=== PATIENT | female | born 1930 | race Caucasian/White ===

== ENCOUNTER → 2016-02-16 | Outpatient (CLI) | payer MEDICARE ==
[2016-01-16 14:52] VITALS: BP 132/60
[~2016-02-16] MED LIST: AMLO5TAB2 PO; ANTI; ATOR20TA PO; CIPR250T30 PO; CLON1TAB3 PO; LOSA50TA6 PO; METO25TA4 PO; OMEP20CA9 PO; POLY17PO5 PO; TRIA15OI TP; [UNRECOGNIZED DRUG - OTHER]; [UNRECOGNIZED DRUG - REMARK] PO
--- NOTE | 2016-02-16 12:59 | RAD ---
Indication kidney stone. 2 supine films of the abdomen were obtained. Note is made of an examination one month earlier. Note is additionally made of a CT examination of the abdomen and pelvis 01/14/2016. The lung bases are clear. The abdominal gas pattern is unremarkable. No definite renal or ureteral calculi are seen. There are some degenerative changes in the lumbar spine. IMPRESSION: No acute or significant finding seen on KUB
== END | disposition home or self-care (01) ==
LOC: RAD 10:41
PROVIDERS: ATTEND Urology
DX: N20.1 Calculus of ureter (principal)
CPT/HCPCS: 74000

== ENCOUNTER 2020-12-14 15:22 | Emergency (ER) | payer MEDICARE ==
[~2020-12-14] VITALS: Ht 170.2 cm; Wt 64.5 kg
[~2020-12-14 15:22] MED LIST changes: +AMLO-186 PO; +AMLO10TA4 PO; -AMLO5TAB2 PO; -CLON1TAB3 PO; +CLONAZEPAM1 MG PO; +LOSA-73 PO; -LOSA50TA6 PO; +MECL12.582 PO; +OMEP20CA16 PO; -OMEP20CA9 PO; +POLY17PO29 PO; -POLY17PO5 PO
--- NOTE | 2020-12-14 15:25 | PHYS DOC ---
Past Medical History Past Medical History: High Cholesterol, Hypertension Past Surgical History: Appendectomy, Hysterectomy Smoking Status: Never Smoker Alcohol Use: Heavy Drug Use: None General Adult HPI: HPI: Patient is a 89 year old female brought in by ambulance from home for generalized abdominal pain, which has been present for days. The pain subsided somewhat a couple of days ago but then returned last night and has progressively worsened throughout the day today. The pain is intermittent. She reports that she has noticed significant abdominal bloating, which is unusual for her. She denies constipation or diarrhea symptoms. She does report a few episodes of nausea and vomiting. She has no active pain at present. She localizes more of her pain towards the right lower abdomen. She denies urinary symptoms. She denies back or flank pain. She denies fever or chills. She denies chest pain or dyspnea. She denies dizziness or syncope. She has had a previous total hysterectomy and appendectomy, many years ago. She denies any prior history of bowel obstruction. Review of Systems: Review of Systems: Constitutional: Denies fever or chills. [] HENT: Denies nasal congestion or sore throat. [] Respiratory: Denies cough or shortness of breath. [] Cardiovascular: Denies chest pain or edema. [] GI: Reports abdominal pain, nausea vomiting. Denies constipation, diarrhea, melena or hematochezia. : Denies urinary symptoms. Musculoskeletal: Denies back pain or joint pain. [] Integument: Denies rash. [] Neurologic: Denies headache, focal weakness or sensory changes. [] Endocrine: Denies polyuria or polydipsia. [] Psychiatric: She does report having anxiety regarding her pain symptoms. [] Heart Score: C/O Chest Pain: No Risk Factors: Risk Factors: DM, Current or recent (<one month) smoker, HTN, HLP, family history of CAD, obesity. Risk Scores: Score 0 - 3: 2.5% MACE over next 6 weeks - Discharge Home Score 4 - 6: 20.3% MACE over next 6 weeks - Admit for Clinical Observation Score 7 - 10: 72.7% MACE over next 6 weeks - Early Invasive Strategies Allergies: Allergies: Allergies Coded Allergies Type Severity Reaction Last Updated Verified No Known Drug Allergies 01/13/16 No Physical Exam: PE: Constitutional: Well developed, well nourished, no acute distress, non-toxic appearance. [] HENT: Normocephalic, atraumatic, oropharynx patent and clear, mucous membranes moist Eyes: Clear are clear and anicteric. Neck: Normal range of motion, no tenderness, supple, no stridor. Trachea is midline. Cardiovascular:Heart rate regular rhythm, +2 radial and dorsalis pedis pulses bilaterally. Lungs & Thorax: Bilateral breath sounds clear to auscultation [] Abdomen: Abdomen soft, moderately distended, bowel sounds present but hypoactive, exquisite right lower quadrant tenderness to palpation with involuntary guarding. No rebound tenderness. Mild suprapubic tenderness to palpation. No palpable pulsatile mass. No audible bruit. No CVA tenderness. No palpable mass organomegaly. No flank or abdominal ecchymoses. Skin: Warm, dry, no erythema, no rash. No jaundice. Back: No tenderness, no CVA tenderness. [] Extremities: No tenderness, no cyanosis, no clubbing, ROM intact, no edema. [] Neurologic: Alert and oriented X 3, normal motor function, normal sensory function, no focal deficits noted. [] Psychologic: She is mildly anxious, though she is very cooperative and pleasant. [] EKG: EKG: [] Radiology/Procedures: Radiology/Procedures: IMAGING REPORT Signed PATIENT: JASON ERNST LACCOUNT: [id number] : 1930 LOCATION: ER AGE: 89 SEX: F EXAM STATUS: REG ER ORD. PHYSICIAN: NICHOLAS STOKES DO REASON: abdominal pain PROCEDURE: CT ABD PELV W/ IV CONTRST ONLY EXAMINATION: CT abdomen and pelvis with IV contrast. INDICATION:89 years, Female, abdominal pain. TECHNIQUE: Axial CT images of the abdomen and pelvis were obtained. Coronal and sagittal reformatted performed. COMPARISON: 01/14/2016. Exposure: One or more of the following individualized dose reduction techniques were utilized for this examination: 1. Automated exposure control 2. Adjustment of the mA and/or kV according to patient size 3. Use of iterative reconstruction technique. FINDINGS: LOWER CHEST: Subsegmental atelectasis in the lingula and right middle lobe. Small to moderate amount of pericardial effusion, new since prior exam. Borderline cardiomegaly. Coronary artery atherosclerotic calcifications. ABDOMEN/PELVIS: Enlarged left and caudate lobes with mild surface irregularity. No suspicious focal hepatic lesion. Redemonstrated 2.[address] evidence of acute cholecystitis. No biliary ductal dilation. Calcified granulomas in the spleen. Diffuse pancreatic atrophy. Multiple subcentimeter hypodense foci in the largest measures 0.8 cm. No main pancreatic ductal dilation. No adrenal nodule. No hydronephrosis or nephrolithiasis. There is a 3.0 cm simple cyst in the interpolar right kidney, increasing from 1.3 cm on prior exam. Subcentimeter hypodensity in the interpolar right kidney, too small to characterize. Nonspecific bilateral perinephric fat stranding. Similar uncomplicated duodenal diverticula. Extensive colonic diverticulosis. Mild wall thickening of the sigmoid colon with adjacent minimal fat stranding and trace amount of pelvic free fluid. No bowel obstruction. Moderate aortoiliac atherosclerotic calcifications. Mild to moderate luminal narrowing of the celiac trunk origin secondary to atherosclerotic calcifications. No lymphaden opathy in the abdomen or pelvis by size criteria. Unremarkable urinary bladder. Hysterectomy. MUSCULOSKELETAL STRUCTURES: Grade 1 anterolisthesis of L4-5. Minimal retrolisthesis of L2 over L3. Multilevel degenerative changes in the spine. No acute osseous process. IMPRESSION: 1. Extensive colonic diverticulosis with mild wall thickening of the sigmoid colon with adjacent minimal fat stranding and trace amount of pelvic free fluid. Findings are suspicious for mild acute diverticulitis. Clinical correlation is advised. 2. Small to moderate amount of pericardial effusion, new since prior exam. 3. Morphology of the liver suggesting of chronic disease. Clinical correlation is advised. 4. Similar cholelithiasis. 5. 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 No follow-up is required given patient's age. Electronically signed by: Henrik Roa MD (12/14/2020 5:27 PM) [facility] DICTATED and SIGNED BY: HENRIK ROA MD DATE: 12/14/20 [id number] Course & Med Decision Making: Course & Med Decision Making Pertinent Labs and Imaging studies reviewed. (See chart for details) IV fluid normal saline bolus given. She declined antiemetics or pain medication here. She is resting comfortably. She does have a nonsurgical abdomen. Findings of acute mild diverticulitis noted on CT. Laboratory exams are unremarkable except for mild leukocytosis. The patient is anxiously awaiting discharge. She feels comfortable with discharge home and outpatient treatment for diverticulitis. I discussed all of the findings, differential diagnosis and plan of care with her. I explained that she should follow-up with her primary care physician. She has an appointment on December 24. I told her she might need to follow-up with outpatient GI services for endoscopy as well. She should discuss this with her PCP as well. The patient now is demanding a refill of Ambien. She has chronic insomnia, and she has been out of Ambien for some time. She reports that her PCP would not refill this for her because she does not want her to be on it, though she is going to discuss this again at her scheduled appointment on December 24. I explained kindly but firmly that this is not an appropriate refill from the emergency department, and I do not agree with ref illing Ambien in general, as it is a high risk drug for serious adverse effects. She is quite upset at the notion that I will not prescribe this for her, but I kindly reiterated to her that this will not be done through the emergency department. I kindly recommend that she might take [id number] melatonin or Unisom for insomnia symptoms, and she reports that she will not do this because she does not feel that they work. I explained this to her daughter as well, her daughter understands my rationale and is also comfortable with me not prescribing Ambien for her mother. Strict return precautions are given. Home care instructions are given. She verbalizes understanding of instructions and is comfortable with the plan of care Vincent Disclaimer: Vincent Disclaimer: This electronic medical record was generated, in whole or in part, using a voice recognition dictation system. Departure Departure Impression: Primary Impression: Acute diverticulitis Disposition: HOME / SELF CARE / HOMELESS Condition: STABLE Referrals: MARY REEDER MD (PCP) Patient Instructions: Diverticulitis Additional Instructions: Please take the full course of antibiotics. Use the pain medicine and nausea medicine as needed. Return immediately to the ER for fever 100.4 or higher, severe or uncontrolled pain, uncontrolled vomiting, dehydration, weakness or any other concerns. Regarding your insomnia, please follow-up with your primary care physician regarding any medications for this, if warranted, at your scheduled appointment on December 24. Make sure you eat a bland diet, drink plenty of clear fluids. In the meantime avoid foods with nuts or seeds or foods that are more difficult to digest, as this may potentially worsen or irritate your diverticulitis. You may ultimately need to follow-up with GI for colonoscopy, so discuss this with your doctor at your scheduled appointment this month. Scripts Hydrocodone Bit/Acetaminophen (HYDROCODONE-APAP 5-325 ) 1 Tab Tablet 1 TAB PO PRN Q6HRS PRN for PAIN, #20 TAB 0 Refills Prov: NICHOLAS STOKES DO 12/14/20 Ondansetron Hcl (ZOFRAN) 4 Mg Tablet 4 MG PO PRN TID PRN for VOMITING, #20 TAB 0 Refills nausea/vomiting Prov: NICHOLAS STOKES DO 12/14/20 Amoxicillin/Potassium Clav (AUGMENTIN 875-125 TABLET) 1 Each Tablet 1 TAB PO BID for 10 Days, #20 TAB 0 Refills Prov: NICHOLAS STOKES DO 12/14/20 NICHOLAS STOKES DO Dec 14, 2020 15:25
[2020-12-14] MEDS ORDERED: IV NORMAL SALINE 1000ML BAG 1,000 ML IV ONE (15:45)
[2020-12-14 16:27] LABS: BASO # 0.1 x10^3/uL (0.0-0.2); BASO % 1 % (0-3); EOS # 0.1 x10^3/uL (0.0-0.7); EOS % 1 % (0-3); HEMOGLOBIN 11.5 g/dL (12.0-15.5); LYMPH # 1.9 x10^3/uL (1.0-4.8); LYMPH % 15 % (24-48); MEAN CORPUSCULAR HEMOGLOBIN 28 pg (25-35); MEAN CORPUSCULAR HGB CONC 33 g/dL (31-37); MEAN CORPUSCULAR VOLUME 86 fL (79-100); MONO # 0.8 x10^3/uL (0.0-1.1); MONO % 7 % (0-9); NEUT # 9.4 x10^3/uL (1.8-7.7); NEUT % 77 % (31-73); PLATELET COUNT 380 x10^3/uL (140-400); RED BLOOD COUNT 4.09 x10^6/uL (3.50-5.40); WHITE BLOOD COUNT 12.3 x10^3/uL (4.0-11.0)
[2020-12-14 16:38] LABS: CREATININE 1.3 mg/dL (0.6-1.0); GFR 38.6; POTASSIUM 4.2 mmol/L (3.5-5.1)
[2020-12-14 16:45] LABS: MAGNESIUM 2.1 mg/dL (1.8-2.4); TOTAL BILIRUBIN 0.9 mg/dL (0.2-1.0); TOTAL PROTEIN 8.1 g/dL (6.4-8.2)
[2020-12-14 16:46] LABS: BILIRUBIN,URINE NEGATIVE (NEG); CLARITY,URINE CLEAR; COLOR,URINE YELLOW; NITRITE,URINE NEGATIVE (NEG); PROTEIN,URINE 100 mg/dL (NEG-TRACE); UROBILINOGEN,URINE 0.2 mg/dL (0.2 mg/dL)
[2020-12-14] MEDS ORDERED: IOHEXOL 300 MG/ML 100ML VIAL. IV ONE (17:00)
[2020-12-14 17:08] LABS: BACTERIA,URINE FEW /HPF (0-FEW)
[2020-12-14 17:10] LABS: RBC,URINE 0 /HPF (0-2)
[2020-12-14 17:11] LABS: YEAST,URINE PRESENT /HPF
--- NOTE | 2020-12-14 17:29 | RAD ---
EXAMINATION: CT abdomen and pelvis with IV contrast. INDICATION:89 years, Female, abdominal pain. TECHNIQUE: Axial CT images of the abdomen and pelvis were obtained. Coronal and sagittal reformatted performed. COMPARISON: 01/14/2016. Exposure: One or more of the following individualized dose reduction techniques were utilized for thi s examination: 1. Automated exposure control 2. Adjustment of the mA and/or kV according to patient size 3. Use of iterative reconstruction technique. FINDINGS: LOWER CHEST: Subsegmental atelectasis in the lingula and right middle lobe. Small to moderate amount of pericardia l effusion, new since prior exam. Borderline cardiomegaly. Coronary artery atherosclerotic calcificat ions. ABDOMEN/PELVIS: Enlarged left and caudate lobes with mild surface irregularity. No suspicious focal hepatic lesion. R edemonstrated 2.[address] evidence of acute cholecystitis. No biliary ductal dilatio n. Calcified granulomas in the spleen. Diffuse pancreatic atrophy. Multiple subcentimeter hypodense f oci in the largest measures 0.8 cm. No main pancreatic ductal dilation. No adrenal nodule. No hydrone phrosis or nephrolithiasis. There is a 3.0 cm simple cyst in the interpolar right kidney, increasing from 1.3 cm on prior exam. Subcentimeter hypodensity in the interpolar right kidney, too small to john racterize. Nonspecific bilateral perinephric fat stranding. Similar uncomplicated duodenal diverticula. Extensive colonic diverticulosis. Mild wall thickening of the sigmoid colon with adjacent minimal fat stranding and trace amount of pelvic free fluid. No fam l obstruction. Moderate aortoiliac atherosclerotic calcifications. Mild to moderate luminal narrowing of the celiac trunk origin secondary to atherosclerotic calcifications. No lymphadenopathy in the ab domen or pelvis by size criteria. Unremarkable urinary bladder. Hysterectomy. MUSCULOSKELETAL STRUCTURES: Grade 1 anterolisthesis of L4-5. Minimal retrolisthesis of L2 over L3. Multilevel degenerative change s in the spine. No acute osseous process. IMPRESSION: 1. Extensive colonic diverticulosis with mild wall thickening of the sigmoid colon with adjacent min imal fat stranding and trace amount of pelvic free fluid. Findings are suspicious for mild acute dive rticulitis. Clinical correlation is advised. 2. Small to moderate amount of pericardial effusion, new since prior exam. 3. Morphology of the liver suggesting of chronic disease. Clinical correlation is advised. 4. Similar cholelithiasis. 5. Multiple subcentimeter hypodense foci in the pancreas, likely cysts or side branch intraductal pa pillary mucinous neoplasms. No follow-up is required given patient's age. Electronically signed by: Bill Roa MD (12/14/2020 5:27 PM) [facility]
[2020-12-14] MEDS ORDERED: AMOX1TAB61 PO (18:18)
[2020-12-14] MEDS ORDERED: ONDA4TAB7 PO (18:18)
[2020-12-14] MEDS ORDERED: HYDR-2761 PO (18:18)
[2020-12-14 18:39] VITALS: BP 167/73
[2020-12-14] MEDS ORDERED: AMOXICILLIN/K CLAV 875/125MG TABLET. PO ONE (18:45)
[2020-12-18] MEDS ORDERED: ZOLP5TAB PO (09:41)
[2020-12-18] MEDS ORDERED: CIPR250T30 PO (09:41)
== END 2020-12-14 19:10 | disposition home or self-care (01) ==
LOC: ER 15:22
DX: K57.92 Diverticulitis of intestine, part unspecified, without perforation or abscess without bleeding (principal); E78.00 Pure hypercholesterolemia, unspecified; I10 Essential (primary) hypertension; Z90.89 Acquired absence of other organs; Z90.710 Acquired absence of both cervix and uterus
CPT/HCPCS: 99285; J7030; Q9967; 36415; 74177; 80053; 81001; 83605; 83690; 83735; 85025; 96360

== ENCOUNTER 2020-12-16 08:28 | Inpatient (IN) | payer MEDICARE ==
[~2020-12-16] VITALS: Ht 170.2 cm; Wt 64.5 kg
[~2020-12-16 08:28] MED LIST changes: +AMOX1TAB61 PO; +HYDR-2761 PO; +ONDA4TAB7 PO
[2020-12-16] MEDS ORDERED: IV NORMAL SALINE 1000ML BAG 1,000 ML IV ONE (09:45)
[2020-12-16] MEDS ORDERED: METOCLOPRAMIDE HCL 10 MG/2 ML VIAL. IVP ONE (09:45)
[2020-12-16 09:47] LABS: BASO # 0.1 x10^3/uL (0.0-0.2); BASO % 1 % (0-3); EOS # 0.1 x10^3/uL (0.0-0.7); EOS % 1 % (0-3); HEMATOCRIT 35.5 % (36.0-47.0); HEMOGLOBIN 11.8 g/dL (12.0-15.5); LYMPH # 1.3 x10^3/uL (1.0-4.8); LYMPH % 14 % (24-48); MEAN CORPUSCULAR HEMOGLOBIN 29 pg (25-35); MEAN CORPUSCULAR HGB CONC 33 g/dL (31-37); MEAN CORPUSCULAR VOLUME 85 fL (79-100); MONO # 0.7 x10^3/uL (0.0-1.1); MONO % 8 % (0-9); NEUT # 7.2 x10^3/uL (1.8-7.7); NEUT % 77 % (31-73); PLATELET COUNT 385 x10^3/uL (140-400); RED BLOOD COUNT 4.16 x10^6/uL (3.50-5.40); RED CELL DISTRIBUTION WIDTH 17.1 % (11.5-14.5); WHITE BLOOD COUNT 9.3 x10^3/uL (4.0-11.0)
[2020-12-16] MEDS ORDERED: cefTRIAXone IV Push 1 GM VIAL. IVP ONE (10:00)
--- NOTE | 2020-12-16 10:01 | PHYS DOC ---
Past Medical History Past Medical History: High Cholesterol, Hypertension Past Surgical History: Appendectomy, Hysterectomy Smoking Status: Never Smoker Alcohol Use: None Drug Use: None General Adult EDM: Chief Complaint: NAUSEA/VOMITING HPI: HPI: 89-year-old female with recent diagnosis of diverticulitis on previous ED encounter 2 days ago presents to the emergency department complaining of abdominal soreness, nausea and vomiting over the last several days. She reports that she has been started on Augmentin at home, she has been able to stomach the pills secondary to her nausea and vomiting and states that she feels worse now. She denies any recent stool changes, blood in her urine, vomit or stool. She is concerned that she is not getting the antibiotics because of the vomiting. She was given Zofran and has taken 2 pills of the Zofran but states that this is not helped her symptoms. The patient admits to nausea, vomiting, chills, denies fever, chest pain, shortness of breath, urinary symptoms, cough, recent trauma, or any other complaints. Review of Systems: Review of Systems: Constitutional: Negative except what was mentioned in HPI. Eyes: Negative except what was mentioned in HPI. HENT: Negative except what was mentioned in HPI. Respiratory: Negative except what was mentioned in HPI. Cardiovascular: Negative except what was mentioned in HPI. GI: Negative except what was mentioned in HPI. : Negative except what was mentioned in HPI. Musculoskeletal: Negative except what was mentioned in HPI. Integument: Negative except what was mentioned in HPI. Neurologic: Negative except what was mentioned in HPI. Heart Score: C/O Chest Pain: No Current Medications: Current Medications Medications (Trade) Dose Ordered Sig/Rahul Start Time Stop Time Status Last Admin Dose Admin Metoclopramide HCl (Reglan Vial) 10 mg 1X ONCE 12/16/20 09:45 12/16/20 09:46 DC Sodium Chloride 1,000 ml @ 1,000 mls/hr 1X ONCE 12/16/20 09:45 12/16/20 10:44 Allergies: Allergies: Allergies Coded Allergies Type Severity Reaction Last Updated Verified No Known Drug Allergies 01/13/16 No Physical Exam: PE: Constitutional: No acute distress, non-toxic appearance. HENT: Atraumatic, bilateral external ears normal, nose normal. Eyes: PERRLA, EOMI, conjunctiva normal, no discharge. Neck: Normal range of motion, supple, no stridor. Cardiovascular: Heart rate regular rhythm. 2+ radial pulses Lungs & Thorax: No respiratory distress, symmetrical expansion. Bilateral breath sounds clear to auscultation Abdomen: Soft, lower quadrant mild tenderness appreciated Skin: Warm, dry. Extremities: No tenderness, no cyanosis, ROM intact, no edema. Neurologic: Alert and oriented X 3, normal motor function, normal sensory function, no focal deficits noted. GCS 15. Psychologic: Affect normal, judgment normal, mood normal. Current Patient Data: Labs: Laboratory Tests Test 12/16/20 09:00 12/16/20 10:25 White Blood Count 9.3 x10^3/uL (4.0-11.0) Red Blood Count 4.16 x10^6/uL (3.50-5.40) Hemoglobin 11.8 g/dL (12.0-15.5) Hematocrit 35.5 % (36.0-47.0) Mean Corpuscular Volume 85 fL (79-100) Mean Corpuscular Hemoglobin 29 pg (25-35) Mean Corpuscular Hemoglobin Concent 33 g/dL (31-37) Red Cell Distribution Width 17.1 % (11.5-14.5) Platelet Count 385 x10^3/uL (140-400) Neutrophils (%) (Auto) 77 % (31-73) Lymphocytes (%) (Auto) 14 % (24-48) Monocytes (%) (Auto) 8 % (0-9) Eosinophils (%) (Auto) 1 % (0-3) Basophils (%) (Auto) 1 % (0-3) Neutrophils # (Auto) 7.2 x10^3/uL (1.8-7.7) Lymphocytes # (Auto) 1.3 x10^3/uL (1.0-4.8) Monocytes # (Auto) 0.7 x10^3/uL (0.0-1.1) Eosinophils # (Auto) 0.1 x10^3/uL (0.0-0.7) Basophils # (Auto) 0.1 x10^3/uL (0.0-0.2) Sodium Level 139 mmol/L (136-145) Potassium Level 3.7 mmol/L (3.5-5.1) Chloride Level 102 mmol/L (98-107) Carbon Dioxide Level 24 mmol/L (21-32) Anion Gap 13 (6-14) Blood Urea Nitrogen 13 mg/dL (7-20) Creatinine 1.3 mg/dL (0.6-1.0) Estimated GFR (Cockcroft-Gault) 38.6 BUN/Creatinine Ratio 10 (6-20) Glucose Level 90 mg/dL (70-99) Calcium Level 8.8 mg/dL (8.5-10.1) Total Bilirubin 0.7 mg/dL (0.2-1.0) Aspartate Amino Transf (AST/SGOT) 20 U/L (15-37) Alanine Aminotransferase (ALT/SGPT) 18 U/L (14-59) Alkaline Phosphatase 101 U/L (46-116) Total Protein 8.1 g/dL (6.4-8.2) Albumin 3.8 g/dL (3.4-5.0) Albumin/Globulin Ratio 0.9 (1.0-1.7) Lipase 93 U/L (73-393) SARS-CoV-2 RNA (PASCALE) Negative (Negative) SARS-CoV-2 Antigen (Rapid) Negative (NEGATIVE) Vital Signs: Vital Signs Date Time Temp Pulse Resp B/P (MAP) Pulse Ox O2 Delivery O2 Flow Rate FiO2 12/16/20 08:30 97.6 86 20 187/86 (119) 99 Room Air 97.6 EKG: EKG: Left bundle branch pattern rate of 74, no ischemic changes. Course & Med Decision Making: Course & Med Decision Making We will plan to admit for failed outpatient management of acute diverticulitis that was diagnosed on Sunday, patient was unable to tolerate antibiotics with out vomiting at home and antiemetics did not help. Patient will be admitted to the hospitalist service under Dr. Quijano. Departure Departure Impression: Primary Impression: Acute diverticulitis Additional Impression: Nausea and vomiting Disposition: ADMITTED INPATIENT Admitting Physician: GÓMEZ Winters) Condition: STABLE Referrals: BAKARI OLMOS NP (PCP) MALIK AREVALO DO Dec 16, 2020 10:01
[2020-12-16 10:07] LABS: CALCIUM 8.8 mg/dL (8.5-10.1); CREATININE 1.3 mg/dL (0.6-1.0); GFR 38.6; POTASSIUM 3.7 mmol/L (3.5-5.1)
[2020-12-16 10:13] LABS: ALBUMIN 3.8 g/dL (3.4-5.0); ALBUMIN/GLOBULIN RATIO 0.9 (1.0-1.7); TOTAL BILIRUBIN 0.7 mg/dL (0.2-1.0); TOTAL PROTEIN 8.1 g/dL (6.4-8.2)
[2020-12-16] MEDS ORDERED: ONDANSETRON PF 4 MG/2 ML VIAL. IVP PRN (10:45)
[2020-12-16] MEDS ORDERED: ACETAMINOPHEN 325 MG TABLET. PO PRN ×2 (10:45→11:00)
[2020-12-16] MEDS ORDERED: MORPHINE SULFATE 4 MG/ML INJ. IVP PRN (10:45)
[2020-12-16] MEDS ORDERED: ZOLPIDEM 5 MG TABLET. PO PRN (11:00)
[2020-12-16] MEDS ORDERED: MORPHINE SULFATE 2 MG/ML INJ. IV PRN ×2 (11:00)
[2020-12-16] MEDS ORDERED: CALCIUM CARBONATE 500 MG TAB.CHEW PO PRN (11:00)
[2020-12-16] MEDS ORDERED: oxyCODONE IR 5 MG TABLET PO PRN (11:00)
[2020-12-16] MEDS ORDERED: PIP/TAZO PER PHARMACY MC PRN ×2 (11:00→11:30)
[2020-12-16] MEDS ORDERED: PIPERACILLIN/TAZOBACTAM 2.25 GM in IV NORMAL SALINE 50ML 50 ML IV ONE (11:00)
[2020-12-16] MEDS ORDERED: PROCHLORPERAZINE 10 MG/2 ML VIAL. IVP PRN (11:00)
[2020-12-16] MEDS ORDERED: ELECTROLYTE (NON-ICU) PROTOCOL. MC PRN (11:00)
[2020-12-16 12:00] VITALS: BP 158/62
--- NOTE | 2020-12-16 12:09 | PDOC1 ---
History and Physical Date of Service: DOS: DATE: 12/16/20 TIME: 12:08 Chief Complaint: Problems: (1) Acute diverticulitis (2) Nausea and vomiting Chief Complain: N/V History of Present Illness: HPI: Patient is an 89-year-old female with recent diagnosis of diverticulitis on previous ED encounter 2 days ago presents to the emergency department complaining of abdominal soreness, nausea and vomiting since sunday. She reports that she has been started on Augmentin at home, she has been able to stomach the pills secondary to her nausea and vomiting and states that she feels worse now. She denies any recent stool changes, blood in her urine, vomit or stool. She is concerned that she is not getting the antibiotics because of the vomiting. She was given Zofran and has taken 2 pills of the Zofran but states that this is not helped her symptoms. The patient admits to nausea, vomiting, chills. denies fever, chest pain, shortness of breath, urinary symptoms, cough, recent trauma, or any other complaints. No evaluate the patient she is resting in bed doing well. Confirmed history. Very pleasant. Past Medical/Surgical History: PMH/PSH: HTN, HPLD Allergies: Allergies: Coded Allergies: No Known Drug Allergies (Unverified , 01/13/16) Family History: Family History: HTN Social History: Social History: Denies alcohol, tobacco, drug use Current Medications: Current Medications Current Medications Metoclopramide HCl (Reglan Vial) 10 mg 1X ONCE IVP Last administered on 12/16/20at 10:14; Start 12/16/20 at 09:45; Stop 12/16/20 at 09:46; Status DC Sodium Chloride 1,000 ml @ 1,000 mls/hr 1X ONCE IV Last administered on 12/16/20at 10:14; Start 12/16/20 at 09:45; Stop 12/16/20 at 10:44; Status DC Metronidazole 100 ml @ 100 mls/hr 1X ONCE IV Last administered on 12/16/20at 10:14; Start 12/16/20 at 10:00; Stop 12/16/20 at 10:59; Status DC Ceftriaxone Sodium (Rocephin) 1 gm 1X ONCE IVP Last administered on 12/16/20at 10:14; Start 12/16/20 at 10:00; Stop 12/16/20 at 10:06; Status DC Ondansetron HCl (Zofran) 4 mg PRN Q8HRS PRN IVP NAUSEA/VOMITING; Start 12/16/20 at 10:45; Stop 12/17/20 at 10:44 Morphine Sulfate (Morphine Sulfate) 4 mg PRN Q2HR PRN IVP PAIN; Start 12/16/20 at 10:45; Stop 12/17/20 at 10:44 Acetaminophen (Tylenol) 650 mg PRN Q4HRS PRN PO FEVER > 100.3'F; Start 12/16/20 at 10:45; Stop 12/17/20 at 10:44 Piperacillin Sod/ Tazobactam Sod (Zosyn Per Pharmacy) 1 each PRN DAILY PRN MC SEE COMMENTS; Start 12/16/20 at 11:00; Stop 12/16/20 at 11:32; Status DC Ondansetron HCl (Zofran) 4 mg PRN Q6HRS PRN IVP NAUSEA/VOMITING; Start 12/16/20 at 11:00 Prochlorperazine Edisylate (Compazine) 10 mg PRN Q6HRS PRN IVP NAUSEA/VOMITING; Start 12/16/20 at 11:00 Calcium Carbonate/ Glycine (Tums) 500 mg PRN Q3HRS PRN PO UPSET STOMACH; Start 12/16/20 at 11:00 Zolpidem Tartrate (Ambien) 5 mg PRN QHS PRN PO INSOMNIA, MAY REPEAT IN 1HR; Start 12/16/20 at 11:00 Info (Non-Icu Electrolyte Protocol) 1 ea PRN DAILY PRN MC SEE COMMENTS; Start 12/16/20 at 11:00 Oxycodone HCl (Roxicodone) 5 mg PRN Q3HRS PRN PO BREAKTHROUGH PAIN; Start 12/16/20 at 11:00 Morphine Sulfate (Morphine Sulfate) 1 mg PRN Q1HR PRN IV PAIN; Start 12/16/20 at 11:00 Morphine Sulfate (Morphine Sulfate) 2 mg PRN Q1HR PRN IV PAIN-SEE COMMENTS; Start 12/16/20 at 11:00 Acetaminophen (Tylenol) 650 mg PRN Q6HRS PRN PO Headaches, Temp > 101.5F; Start 12/16/20 at 11:00 Senna/Docusate Sodium (Senna Plus) 1 tab BID PO ; Start 12/16/20 at 21:00 Heparin Sodium (Porcine) (Heparin Sodium) 5,000 unit Q8HRS SQ ; Start 12/16/20 at 12:00 Amlodipine Besylate (Norvasc) 10 mg DAILY PO ; Start 12/16/20 at 12:00 Atorvastatin Calcium (Lipitor) 20 mg QHS PO ; Start 12/16/20 at 21:00 Losartan Potassium (Cozaar) 50 mg DAILY PO ; Start 12/16/20 at 12:00 Metoprolol Tartrate (Lopressor) 25 mg BID PO ; Start 12/16/20 at 12:00 Piperacillin Sod/ Tazobactam Sod 2.25 gm/Sodium Chloride 50 ml @ 100 mls/hr 1X ONCE IV Last administered on 12/16/20at 11:24; Start 12/16/20 at 11:00; Stop 12/16/20 at 11:29; Status DC Piperacillin Sod/ Tazobactam Sod (Zosyn Per Pharmacy) 1 each PRN DAILY PRN MC SEE COMMENTS; Start 12/16/20 at 11:30 Piperacillin Sod/ Tazobactam Sod 2.25 gm/Sodium Chloride 50 ml @ 100 mls/hr Q6HRS IV ; Start 12/17/20 at 18:00 Active Scripts Active Hydrocodone-Apap 5-325 (Hydrocodone Bit/Acetaminophen) 1 Tab Tablet 1 Tab PO PRN Q6HRS PRN Zofran (Ondansetron Hcl) 4 Mg Tablet 4 Mg PO PRN TID PRN nausea/vomiting Augmentin 875-125 Tablet (Amoxicillin/Potassium Clav) 1 Each Tablet 1 Tab PO BID 10 Days Norvasc (Amlodipine Besylate) 10 Mg Tablet 10 Mg PO DAILY Meclizine Hcl 12.5 Mg Tablet 12.5 Mg PO PRN Q6HRS PRN Reported Metoprolol Tartrate 25 Mg Tablet 25 Mg PO BID Losartan Potassium 50 Mg Tablet 50 Mg PO DAILY Lipitor (Atorvastatin Calcium) 20 Mg Tablet 1 Tab PO DAILY ROS: Review of Systems Review of Systems Unless noted in HPI a 14 point review systems was negative Physical Exam: Vital Signs: Vital Signs Date Time Temp Pulse Resp B/P (MAP) Pulse Ox O2 Delivery O2 Flow Rate FiO2 12/16/20 10:48 68 19 171/70 (103) 98 Room Air 12/16/20 08:30 97.6 97.6 Physcial Exam: GEN: No apparent distress. Alert and oriented HEENT: Normal cephalic, atraumatic, external auditory canals are patent EYES: Extraocular muscles are intact, pupil are equally round and reactive to light and accommodation MUSCULOSKELETAL: Well developed , well nourished, good range of motion ENDOCRINE: No thyromegaly was palpated LYMPHATICS: No cervical chain or axillary nodes were noted HEMATOPOIETIC: No bruising NECK: Supple, no JVD, no thyromegaly was noted LUNGS: Clear to auscultation in all lung collins without rhonchi or wheezing HEART: RRR, S1, S2 present. Peripheral pulses intact, no obvious murmurs noted ABDOMEN: Diffusely tender, no distention normal bowel sounds EXTREMITIES: Without clubbing, cyanosis, or edema. Pedal pulses intact. NEUROLOGIC: Normal speech and tone. A&O x 3, moves all extremities, no obvious focal deficits PSYCHIATRIC: Normal affect, normal mood. Stable SKIN: No ulcerations or rashes, good skin turgor, no jaundice VASCULAR: Good capillary refill, neurovascular bundle appears to be intact Labs: Labs: Laboratory Tests Test 12/16/20 09:00 12/16/20 10:25 White Blood Count 9.3 x10^3/uL (4.0-11.0) Red Blood Count 4.16 x10^6/uL (3.50-5.40) Hemoglobin 11.8 g/dL (12.0-15.5) Hematocrit 35.5 % (36.0-47.0) Mean Corpuscular Volume 85 fL (79-100) Mean Corpuscular Hemoglobin 29 pg (25-35) Mean Corpuscular Hemoglobin Concent 33 g/dL (31-37) Red Cell Distribution Width 17.1 % (11.5-14.5) Platelet Count 385 x10^3/uL (140-400) Neutrophils (%) (Auto) 77 % (31-73) Lymphocytes (%) (Auto) 14 % (24-48) Monocytes (%) (Auto) 8 % (0-9) Eosinophils (%) (Auto) 1 % (0-3) Basophils (%) (Auto) 1 % (0-3) Neutrophils # (Auto) 7.2 x10^3/uL (1.8-7.7) Lymphocytes # (Auto) 1.3 x10^3/uL (1.0-4.8) Monocytes # (Auto) 0.7 x10^3/uL (0.0-1.1) Eosinophils # (Auto) 0.1 x10^3/uL (0.0-0.7) Basophils # (Auto) 0.1 x10^3/uL (0.0-0.2) Sodium Level 139 mmol/L (136-145) Potassium Level 3.7 mmol/L (3.5-5.1) Chloride Level 102 mmol/L (98-107) Carbon Dioxide Level 24 mmol/L (21-32) Anion Gap 13 (6-14) Blood Urea Nitrogen 13 mg/dL (7-20) Creatinine 1.3 mg/dL (0.6-1.0) Estimated GFR (Cockcroft-Gault) 38.6 BUN/Creatinine Ratio 10 (6-20) Glucose Level 90 mg/dL (70-99) Calcium Level 8.8 mg/dL (8.5-10.1) Total Bilirubin 0.7 mg/dL (0.2-1.0) Aspartate Amino Transf (AST/SGOT) 20 U/L (15-37) Alanine Aminotransferase (ALT/SGPT) 18 U/L (14-59) Alkaline Phosphatase 101 U/L (46-116) Total Protein 8.1 g/dL (6.4-8.2) Albumin 3.8 g/dL (3.4-5.0) Albumin/Globulin Ratio 0.9 (1.0-1.7) Lipase 93 U/L (73-393) SARS-CoV-2 Antigen (Rapid) Negative (NEGATIVE) Laboratory Tests Test 12/16/20 09:00 12/16/20 10:25 White Blood Count 9.3 x10^3/uL (4.0-11.0) Red Blood Count 4.16 x10^6/uL (3.50-5.40) Hemoglobin 11.8 g/dL (12.0-15.5) Hematocrit 35.5 % (36.0-47.0) Mean Corpuscular Volume 85 fL (79-100) Mean Corpuscular Hemoglobin 29 pg (25-35) Mean Corpuscular Hemoglobin Concent 33 g/dL (31-37) Red Cell Distribution Width 17.1 % (11.5-14.5) Platelet Count 385 x10^3/uL (140-400) Neutrophils (%) (Auto) 77 % (31-73) Lymphocytes (%) (Auto) 14 % (24-48) Monocytes (%) (Auto) 8 % (0-9) Eosinophils (%) (Auto) 1 % (0-3) Basophils (%) (Auto) 1 % (0-3) Neutrophils # (Auto) 7.2 x10^3/uL (1.8-7.7) Lymphocytes # (Auto) 1.3 x10^3/uL (1.0-4.8) Monocytes # (Auto) 0.7 x10^3/uL (0.0-1.1) Eosinophils # (Auto) 0.1 x10^3/uL (0.0-0.7) Basophils # (Auto) 0.1 x10^3/uL (0.0-0.2) Sodium Level 139 mmol/L (136-145) Potassium Level 3.7 mmol/L (3.5-5.1) Chloride Level 102 mmol/L (98-107) Carbon Dioxide Level 24 mmol/L (21-32) Anion Gap 13 (6-14) Blood Urea Nitrogen 13 mg/dL (7-20) Creatinine 1.3 mg/dL (0.6-1.0) Estimated GFR (Cockcroft-Gault) 38.6 BUN/Creatinine Ratio 10 (6-20) Glucose Level 90 mg/dL (70-99) Calcium Level 8.8 mg/dL (8.5-10.1) Total Bilirubin 0.7 mg/dL (0.2-1.0) Aspartate Amino Transf (AST/SGOT) 20 U/L (15-37) Alanine Aminotransferase (ALT/SGPT) 18 U/L (14-59) Alkaline Phosphatase 101 U/L (46-116) Total Protein 8.1 g/dL (6.4-8.2) Albumin 3.8 g/dL (3.4-5.0) Albumin/Globulin Ratio 0.9 (1.0-1.7) Lipase 93 U/L (73-393) SARS-CoV-2 Antigen (Rapid) Negative (NEGATIVE) Assessment/Plan Assessment/Plan Nausea vomiting abdominal pain secondary to diverticulitis, history hypertension hyperlipidemia -Patient with about 1 week history abdominal pain nausea vomiting decreased p.o. intake -Present emergency room here Sunday diagnosed with diverticulitis was discharged from the ED with Augmentin Zofran. Says she has been unable to keep his pills down was concerned she is not getting her medication properly -In emergency room this morning held off on imaging due to recent scan Sunday -We will start patient on Zosyn for treatment -Should she worsen will then repeat CT abdomen pelvis -As needed nausea medicine -We will stick with n.p.o. for now may be able to advance to clears later -DVT prophylaxis -Plan of care discussed with bedside RN -Home meds resumed as indicated Justifications for Admission Other Justification SABAS SCHILLING MD Dec 16, 2020 12:09
[2020-12-16] MEDS: LOSARTAN POTASSIUM 50 MG TABLET. PO SCH (12:12)
[2020-12-16] MEDS: METOPROLOL TART IMMED RELEASE 25 MG TABLET. PO SCH ×2 (12:12→21:10)
[2020-12-16] MEDS: HEPARIN for SUB-Q USE 5,000 UNIT/ML VIAL. SQ SCH ×2 (12:17→21:16)
--- NOTE | 2020-12-16 13:27 | EKG ---
[facility] [address] [place] [address] Test Date: 2020-12-16 Test Time: 08:51:23 Pat Name: JASON ERNST Department: Room: 432 Gender: F [employer] Paving Machine Operator: : [id number] Requested By: SABAS SCHILLING Order Number: [id number] Reading MD: Bennie Day Measurements Intervals [place] Rate: 74 P: 47 WA: 162 QRS: -49 QRSD: 132 T: 118 QT: 406 QTc: 451 Interpretive Statements SINUS RHYTHM ABNORMAL LEFT AXIS DEVIATION LEFT BUNDLE BRANCH BLOCK ABNORMAL ECG Electronically Signed On 12-20-2020 9:57:11 [employer]OUR [employer]IX[employer] HEL[employer] by Bennie Day
[2020-12-16 15:00] VITALS: BP 144/57
[2020-12-16] MEDS: ONDANSETRON PF 4 MG/2 ML VIAL. IVP PRN (17:42)
[2020-12-16 19:00] VITALS: BP 152/57
[2020-12-16] MEDS: SENNOSIDES/DOCUSATE 8.6/50MG TABLET. PO SCH (21:00)
[2020-12-16] MEDS: ATORVASTATIN CALCIUM 20 MG TABLET PO SCH (21:10)
[2020-12-16 23:00] VITALS: BP 132/51
[2020-12-17 03:00] VITALS: BP 140/58
[2020-12-17 04:57] LABS: BILIRUBIN,URINE NEGATIVE (NEG); CLARITY,URINE CLEAR; COLOR,URINE YELLOW; NITRITE,URINE NEGATIVE (NEG); PH,URINE 5.5 (<5.0-8.0); PROTEIN,URINE 30 mg/dL (NEG-TRACE); UROBILINOGEN,URINE 0.2 mg/dL (0.2 mg/dL)
[2020-12-17 05:11] LABS: BACTERIA,URINE 0 /HPF (0-FEW); RBC,URINE 0 /HPF (0-2); YEAST,URINE PRESENT /HPF
[2020-12-17] MEDS: HEPARIN for SUB-Q USE 5,000 UNIT/ML VIAL. SQ SCH ×3 (06:00→21:01)
[2020-12-17 07:00] VITALS: BP 149/57
[2020-12-17] MEDS: SENNOSIDES/DOCUSATE 8.6/50MG TABLET. PO SCH ×2 (08:33→20:56)
[2020-12-17] MEDS: METOPROLOL TART IMMED RELEASE 25 MG TABLET. PO SCH ×2 (08:34→20:56)
[2020-12-17] MEDS: LOSARTAN POTASSIUM 50 MG TABLET. PO SCH (08:35)
[2020-12-17] MEDS: ONDANSETRON PF 4 MG/2 ML VIAL. IVP PRN (08:36)
--- NOTE | 2020-12-17 10:15 | NUR ---
SW following. Discussed with RN, pt from home with daughter, room air, NPO, COVID-19 negative. Per RN pt gets around fine. Pt newly admitted - awaiting plan of care. SW will continue to follow.
[2020-12-17] MEDS ORDERED: PIPERACILLIN/TAZOBACTAM 2.25 GM in IV NORMAL SALINE 50ML 50 ML IV SCH (10:45)
[2020-12-17 11:00] VITALS: BP 135/54
[2020-12-17] MEDS: CIPROFLOXACIN HCL 250 MG TABLET. PO SCH ×2 (11:08→20:56)
[2020-12-17 15:00] VITALS: BP 133/62
[2020-12-17 19:00] VITALS: BP 148/60
--- NOTE | 2020-12-17 20:35 | PDOC ---
[facility] PROGRESS NOTE Date of Service DOS: DATE: 12/17/20 TIME: 20:32 Chief Complaint Chief Complaint Nausea vomiting abdominal pain secondary to diverticulitis, history hypertension hyperlipidemia -Patient with about 1 week history abdominal pain nausea vomiting decreased p.o. intake -Present emergency room here Sunday diagnosed with diverticulitis was discharged from the ED with Augmentin Zofran. Says she has been unable to keep his pills down was concerned she is not getting her medication properly -In emergency room this morning held off on imaging due to recent scan Sunday -Start Cipro -Should she worsen will then repeat CT abdomen pelvis -As needed nausea medicine -Advance diet -DVT prophylaxis -Plan of care discussed with bedside RN -Home meds resumed as indicated History of Present Illness History of Present Illness Patient is an 89-year-old female with recent diagnosis of diverticulitis on previous ED encounter 2 days ago presents to the emergency department complaining of abdominal soreness, nausea and vomiting since sunday. She reports that she has been started on Augmentin at home, she has been able to stomach the pills secondary to her nausea and vomiting and states that she feels worse now. She denies any recent stool changes, blood in her urine, vomit or stool. She is concerned that she is not getting the antibiotics because of the vomiting. She was given Zofran and has taken 2 pills of the Zofran but states that this is not helped her symptoms. The patient admits to nausea, vomiting, chills. denies fever, chest pain, shortness of breath, urinary symptoms, cough, recent trauma, or any other complaints. No evaluate the patient she is resting in bed doing well. Confirmed history. Very pleasant 12/17 Patient evaluated examined at bedside. Says her abdominal pain and nausea is much better. Says she only gets abdominal pain when she moves. She is willing to try some diet today. We will will switch her antibiotics over to orals and see if she can tolerate it in anticipation of discharge tomorrow. Plan of care discussed with bedside RN Vitals/I&O Vitals/I&O: Vital Signs Date Time Temp Pulse Resp B/P (MAP) Pulse Ox O2 Delivery O2 Flow Rate FiO2 12/17/20 19:00 98.3 79 20 148/60 (89) 94 Room Air 98.3 Physical Exam General: Alert, Oriented X3, Cooperative Heart: Regular rate, Normal S1, Normal S2 Lungs: Clear Abdomen: Normal bowel sounds, Soft, No tenderness Extremities: No edema, Normal pulses Skin: No significant lesion Labs Labs: Laboratory Tests Test 12/17/20 04:45 Urine Collection Type Unknown Urine Color Yellow Urine Clarity Clear Urine pH 5.5 (<5.0-8.0) Urine Specific [place] 1.010 (1.000-1.030) Urine Protein 30 mg/dL (NEG-TRACE) Urine Glucose (UA) Negative mg/dL (NEG) Urine Ketones (Stick) Trace mg/dL (NEG) Urine Blood Negative (NEG) Urine Nitrite Negative (NEG) Urine Bilirubin Negative (NEG) Urine Urobilinogen Dipstick 0.2 mg/dL (0.2 mg/dL) Urine Leukocyte Esterase Negative (NEG) Urine RBC 0 /HPF (0-2) Urine WBC 1-4 /HPF (0-4) Urine Squamous Epithelial Cells Few /LPF Urine Bacteria 0 /HPF (0-FEW) Urine Yeast Present /HPF Assessment and Plan Assessmemt and Plan Problems Medical Problems: (1) Acute diverticulitis Status: Acute (2) Nausea and vomiting Status: Acute Comment Review of Relevant I have reviewed the following items chong (where applicable) has been applied. Medications: Current Medications Medications (Trade) Dose Ordered Sig/Rahul Route PRN Reason Start Time Stop Time Status Last Admin Dose Admin Senna/Docusate Sodium (Senna Plus) 1 tab BID PO 12/16/20 21:00 12/17/20 08:33 Atorvastatin Calcium (Lipitor) 20 mg QHS PO 12/16/20 21:00 12/16/20 21:10 Ciprofloxacin (Cipro) 250 mg BID PO 12/17/20 11:00 12/17/20 11:08 Justifications for Admission Other Justification SABAS SCHILLING MD Dec 17, 2020 20:35
[2020-12-17] MEDS: ATORVASTATIN CALCIUM 20 MG TABLET PO SCH (20:56)
[2020-12-17 23:01] VITALS: BP 142/56
[2020-12-18 03:02] VITALS: BP 131/47
[2020-12-18] MEDS: HEPARIN for SUB-Q USE 5,000 UNIT/ML VIAL. SQ SCH (05:54)
[2020-12-18 07:00] VITALS: BP 159/64
[2020-12-18] MEDS ORDERED: CIPR250T30 PO (09:41)
[2020-12-18] MEDS ORDERED: ZOLP5TAB PO (09:41)
--- NOTE | 2020-12-18 09:47 | PDOC3 ---
[facility]-Discharge Summary Date of Admission: Date of Admission: Dec 16, 2020 Date of Discharge: Date of Discharge: Dec 18, 2020 Admission Diagnosis: Problems: (1) Acute diverticulitis Discharge Diagnosis: Discharge Diagnosis: Same Hospital Course: Hospital Course: Chief Complaint Nausea vomiting abdominal pain secondary to diverticulitis, history hypertension hyperlipidemia -Patient with about 1 week history abdominal pain nausea vomiting decreased p.o. intake -Present emergency room here Sunday diagnosed with diverticulitis was discharged from the ED with Augmentin Zofran. Says she has been unable to keep his pills down was concerned she is not getting her medication properly -In emergency room this morning held off on imaging due to recent scan Sunday -Start Cipro -Should she worsen will then repeat CT abdomen pelvis -As needed nausea medicine -Advance diet -DVT prophylaxis -Plan of care discussed with bedside RN -Home meds resumed as indicated History of Present Illness History of Present Illness Patient is an 89-year-old female with recent diagnosis of diverticulitis on previous ED encounter 2 days ago presents to the emergency department complaining of abdominal soreness, nausea and vomiting since sunday. She reports that she has been started on Augmentin at home, she has been able to st omach the pills secondary to her nausea and vomiting and states that she feels worse now. She denies any recent stool changes, blood in her urine, vomit or stool. She is concerned that she is not getting the antibiotics because of the vomiting. She was given Zofran and has taken 2 pills of the Zofran but states that this is not helped her symptoms. The patient admits to nausea, vomiting, chills. denies fever, chest pain, shortness of breath, urinary symptoms, cough, recent trauma, or any other complaints. No evaluate the patient she is resting in bed doing well. Confirmed history. Very pleasant 12/17 Patient evaluated examined at bedside. Says her abdominal p pain is controlled 12/18 Patient evaluated examined at bedside. Doing well no pain. Tolerated diet with times difficulty yesterday tolerating oral Cipro. Discharge home today. Complete antibiotics at home. I spent greater than 30 minutes on the discharge of this patient. Disposition: Disposition/Orders: D/C to Home Activity: Activity: Resume previous activity Diet: Diet: other (soft, advance as tolerated) Medications: Home Meds Active Scripts Zolpidem Tartrate (AMBIEN) 5 Mg Tablet, 5 MG PO PRN QHS PRN for INSOMNIA for 10 Days, #10 TAB Prov:SABAS SCHILLING MD 12/18/20 Ciprofloxacin Hcl (CIPRO) 250 Mg Tablet, 250 MG PO BID for diverticulitis for 10 Days, #20 TAB Prov:SABAS SCHILLING MD 12/18/20 Hydrocodone Bit/Acetaminophen (HYDROCODONE-APAP 5-325 ) 1 Tab Tablet, 1 TAB PO PRN Q6HRS PRN for PAIN, #20 TAB 0 Refills Prov:NICHOLAS STOKES DO 12/14/20 Ondansetron Hcl (ZOFRAN) 4 Mg Tablet, 4 MG PO PRN TID PRN for VOMITING, #20 TAB 0 Refills nausea/vomiting Prov:NICHOLAS STOKES DO 12/14/20 Amlodipine Besylate (NORVASC) 10 Mg Tablet, 10 MG PO DAILY for htn, #60 TAB Prov:JANETT LUNA MD 02/26/19 Meclizine Hcl (MECLIZINE HCL) 12.5 Mg Tablet, 12.5 MG PO PRN Q6HRS PRN for DIZZINESS, #60 TAB Prov:JANETT LUNA MD 02/26/19 Reported Medications Metoprolol Tartrate (METOPROLOL TARTRATE) 25 Mg Tablet, 25 MG PO BID for FOR HYPERTENSION, #60 TAB 0 Refills 01/14/16 Losartan Potassium (LOSARTAN POTASSIUM) 50 Mg Tablet, 50 MG PO DAILY, TAB 01/14/16 Atorvastatin Calcium (LIPITOR) 20 Mg Tablet, 1 TAB PO DAILY, #90 TAB 1 Refill 01/14/16 Discontinued Scripts Amoxicillin/Potassium Clav (AUGMENTIN 875-125 TABLET) 1 Each Tablet, 1 TAB PO BID for 10 Days, #20 TAB 0 Refills Prov:NICHOLAS STOKES DO 12/14/20 Scheduled Amlodipine Besylate (Norvasc), 10 MG PO DAILY Atorvastatin Calcium (Lipitor), 1 TAB PO DAILY, (Reported) Ciprofloxacin Hcl (Cipro), 250 MG PO BID Losartan Potassium (Losartan Potassium), 50 MG PO DAILY, (Reported) Metoprolol Tartrate (Metoprolol Tartrate), 25 MG PO BID, (Reported) Scheduled PRN Hydrocodone Bit/Acetaminophen (Hydrocodone-Apap 5-325 ), 1 TAB PO PRN Q6HRS PRN for PAIN Meclizine Hcl (Meclizine Hcl), 12.5 MG PO PRN Q6HRS PRN for DIZZINESS Ondansetron Hcl (Zofran), 4 MG PO PRN TID PRN for VOMITING Zolpidem Tartrate (Ambien), 5 MG PO PRN QHS PRN for INSOMNIA Discontinued Medications Amoxicillin/Potassium Clav (Augmentin 875-125 Tablet), 1 TAB PO BID Justicifation of Admission Dx: Justifications for Admission: Justification of Admission Dx: Yes (diverticulitis) SABAS SCHILLING MD Dec 18, 2020 09:46
[2020-12-18] MEDS: SENNOSIDES/DOCUSATE 8.6/50MG TABLET. PO SCH (09:57)
[2020-12-18] MEDS: CIPROFLOXACIN HCL 250 MG TABLET. PO SCH (09:58)
[2020-12-18] MEDS: METOPROLOL TART IMMED RELEASE 25 MG TABLET. PO SCH (09:59)
[2020-12-18] MEDS: LOSARTAN POTASSIUM 50 MG TABLET. PO SCH (09:59)
[2020-12-18 11:20] VITALS: BP 146/57
--- NOTE | 2020-12-18 12:07 | NUR ---
At discharge the prescription was sent to [facility] at [phone] Called the pharmacy and had them send the prescriptions to the [facility] at [phone]. At discharge pt was taken out by wheelchair with daughter
[2020-12-18] MEDS ORDERED: LACTOBACILLUS RHAMNOSUS GG 1 CAPSULE. PO SCH (21:00)
== END 2020-12-18 12:35 | disposition home or self-care (01) | DRG 392 ==
LOC: ER 08:28 → 4 NORTH 11:43
PROVIDERS: ADMIT Student in an Organized Health Care Education/Training Program; ATTEND Student in an Organized Health Care Education/Training Program
DX: K57.32 Diverticulitis of large intestine without perforation or abscess without bleeding (principal); E78.00 Pure hypercholesterolemia, unspecified; E78.5 Hyperlipidemia, unspecified; I10 Essential (primary) hypertension; Z82.49 Family history of ischemic heart disease and other diseases of the circulatory system; Z90.49 Acquired absence of other specified parts of digestive tract; Z90.710 Acquired absence of both cervix and uterus; Z20.822 Contact with and (suspected) exposure to COVID-19
CPT/HCPCS: 36415; 74177; 80053; 81001; 83605; 83690; 83735; 85025; 87426; 93005; 96360; 96365; 96375; J0696; J1644; J2405; J2543; J2765; J3490; J7030; Q9967; U0003; U0005; 99285-25; G0378